=== PATIENT | female | born 2000 | race Hispanic/Latino ===

== ENCOUNTER 2021-08-11 22:08 | Emergency (ER) | payer MEDICAID ==
[~2021-08-11] VITALS: Ht 157.5 cm; Wt 93.4 kg
[2021-08-11 22:22] VITALS: BP 129/79
== END 2021-08-12 03:00 | disposition home or self-care (01) ==
LOC: EDH 22:08
DX: T16.1XXA Foreign body in right ear, initial encounter (principal); X58.XXXA Exposure to other specified factors, initial encounter; Y93.89 Activity, other specified; Y92.89 Other specified places as the place of occurrence of the external cause; Y99.8 Other external cause status
CPT/HCPCS: 69200